=== PATIENT | female | born 1955 | race Caucasian/White ===

== ENCOUNTER 2017-04-06 20:09 | Emergency (ER) | payer OTHER ==
[2017-04-06 20:31] VITALS: BMI 30.3
[2017-04-06 21:13] LABS: URINE APPEARANCE CLEAR; URINE BILIRUBIN NEGATIVE (NEGATIVE); URINE BLOOD 3+ (NEGATIVE); URINE COLOR LTYELLOW; URINE GLUCOSE (UA) NEGATIVE (NEGATIVE); URINE KETONE NEGATIVE (NEGATIVE); URINE LEUK ESTERASE TRACE (NEGATIVE); URINE NITRITE NEGATIVE (NEGATIVE); URINE PROTEIN NEGATIVE (NEGATIVE); URINE UROBILINOGEN NEGATIVE mg/dL (0.2-1.0)
[2017-04-06 21:48] LABS: URINE BACTERIA FEW /hpf (NONE SEEN); URINE MUCUS RARE; URINE RBC 10 /hpf (0-3); URINE WBC 3 /hpf (3-5)
--- NOTE | 2017-04-06 21:52 | PDOC ---
History of Present Illness - General Chief Complaint: Pain Stated Complaint: PAIN Time Seen by Provider: 04/06/17 21:32 - History of Present Illness Initial Comments: 04/06/17 21:42 CHIEF COMPLAINT: LLQ pain HISTORY OF PRESENT ILLNESS: 62 yo F with hx of HTN, HLD, and kidney stones presents to ED with LLQ pain since 8am this morning. Patient reports that she has been diagnosed with stones before "but they never hurt like this." Patient states she took 2 ibuprofen around 7 pm and with some relief. She reports having nausea and two episodes of vomiting this morning when the pain began but denies N/V at this time. She denies any fever. Patient reports recent travel on plane from [place] this morning. She denies any chest pain, SOB, difficulty breathing, pain or swelling to legs. PAST MEDICAL HISTORY: as per HPI FAMILY HISTORY: Denies SOCIAL HISTORY: Denies tobacco, alcohol, illicit drug use. SURGICAL HISTORY: Denies ALLERGIES: No known drug allergies REVIEW OF SYSTEMS General/Constitutional: Denies fever or chills. Denies weakness, weight change. HEENT: Denies change in vision. Denies ear pain or discharge. Denies sore throat. Cardiovascular: Denies chest pain or shortness of breath. Respiratory: Denies cough, wheezing, or hemoptysis. Gastrointestinal: Denies nausea, vomiting, diarrhea or constipation. Denies rectal bleeding. Genitourinary: Pain to L back and LLQ. Denies dysuria, frequency, or change in urination. Musculoskeletal: Denies joint or muscle swelling or pain. Denies neck or back pain. Skin and breasts: Denies rash or easy bruising. PHYSICAL EXAM General Appearance: Well-appearing, appropriately dressed. No apparent distress , no intoxication. HEENT: EOMI, PERRLA. Neck: Supple. Trachea midline. No tenderness, rigidity, carotid bruit, stridor , lymphadenopathy, or thyromegaly. Respiratory/Chest: Lungs CTAB. No shortness of breath, chest tenderness, respiratory distress, accessory muscle use. No crackles, rales, rhonchi, stridor , wheezing, dullness Cardiovascular: RRR. S1, S2. Vascular Pulses: Dorsalis-Pedis (R): 2+, Dorsalis-Pedis (L): 2+ Gastrointestinal/Abdominal: Normal bowel sounds. Abdomen soft, non-distended. No tenderness or rebound tenderness. No organomegaly, pulsatile mass, guarding , hernia, hepatomegaly, splenomegaly. Musculoskeletal/Extremities: L CVA tenderness. Normal inspection. FROM of all extremities, normal capillary refill. Pelvis Stable. No CVA tenderness. No tenderness to extremities, pedal edema, swelling, erythema or deformity. Integumentary: Appropriate color, dry, warm. No cyanosis, erythema, jaundice or rash Neurologic: phlebotomy technologist II-XII intact. Fully oriented, alert. Appropriate mood/affect. Motor strength 5/5. No appreciable EOM palsy, facial droop or sensory deficit. Past History - Past Medical History Allergies/Adverse Reactions: Allergies Allergy/AdvReac Type Severity Reaction Status Date / Time No Known Allergies Allergy Verified 04/06/17 20:28 Home Medications: Ambulatory Orders Tamsulosin HCl [Flomax] 0.4 mg PO DAILY #14 cap.er.24h 04/07/17 Disorders: Yes (Kidney stones) HTN: Yes Hypercholesterolemia: Yes - Suicide/Smoking/Psychosocial Hx Smoking History: Never smoked Have you smoked in the past 12 months: No Information on smoking cessation initiated: No Hx Alcohol Use: No Drug/Substance Use Hx: No Substance Use Type: None *Physical Exam - Vital Signs Last Vital Signs Temp Pulse Resp BP Pulse Ox 98.0 F 84 18 157/72 97 04/06/17 20:28 04/06/17 20:28 04/06/17 20:28 04/06/17 20:28 04/06/17 20:28 ED Treatment Course - LABORATORY CBC & Chemistry Diagram: 04/06/17 22:05 04/06/17 22:05 - ADDITIONAL ORDERS Additional order review: Laboratory Results 04/06/17 21:00 Urine Color Ltyellow Urine Appearance Clear Urine pH 5.0 Urine Protein Negative Urine Glucose (UA) Negative Urine Ketones Negative Urine Blood 3+ H Urine Nitrite Negative Urine Bilirubin Negative Urine Urobilinogen Negative - RADIOLOGY Radiology Studies Ordered: Category Date Time Status SPIRAL- RENAL-STONE CT [CT] Stat CT Scan 04/06/17 21:36 Ordered Medical Decision Making - Medical Decision Making 04/06/17 21:52 62 yo F with hx of HTN, HLD, and kidney stones presents to ED with LLQ pain since 8am this morning. -UA, Ucx -CBC, BMP UA with 3+ blood. Will order spiral CT to r/o stones. -Toradol IV, IVF 04/07/17 01:[address] positive: "Multiple left non obstructing renal stones. Mild to moderate left hydronephrosis/hydroureter with mild periureteric stranding. There is a very tiny 1 mm or less density in the distal third of the left ureter. Uncertain if this is the offending stone or quantum mottle artifact. In any event this is either the stone or the offending stone has already passed. Check to see if the patient's symptoms have subsided. Multiple nonobstructing right renal stone, no right urinary tract obstruction at this time. 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 CT otherwise unremarkable. Read by: Cristian Donis MD Patient reassessed; at this time she states she is feeling better and would like to go home. Advised patient to f/u with PCP by the end of the week and of signs and symptoms for return to ER; patient verbalized understanding and agrees to plan. *DC/Admit/Observation/Transfer Diagnosis at time of Disposition: Kidney stones - Discharge Dispostion Disposition: HOME Condition at time of disposition: Improved Admit: No - Prescriptions Prescriptions: Tamsulosin HCl [Flomax] 0.4 mg PO DAILY #14 cap.er.24h - Referrals Referrals: Diogo Mckeon MD [Primary Care Provider] - - Patient Instructions Printed Discharge Instructions: Kidney Stones -- Adult Additional Instructions: Please follow up with Dr. Mckeon by the end of the week. If you develop any new or worsening pain to your abdomen, fever, chills, nausea, vomiting, or any new symptoms, please return to the ER. Print Language: YORUBA
[2017-04-06 22:12] LABS: BASOPHIL 0.2 % (0-2.0); EOSINOPHIL 0.1 % (0-4.5); MCHC 33.4 g/dl (32.0-36.0); MEAN CELL VOLUME 89.9 fl (80-96); MEAN PLT VOLUME 7.7 fl (7.5-11.1); NEUTROPHILS 84.7 % (42.8-82.8); PLATELET COUNT 153 K/MM3 (134-434); RDW 13.2 % (11.6-15.6); WHITE BLOOD COUNT 12.7 K/mm3 (4.0-10.0)
[2017-04-06 22:45] LABS: ANION GAP 10 (8-16); CO2 25 mmol/L (21-32); CREATININE 0.8 mg/dL (0.55-1.02); GLUCOSE,RANDOM 124 mg/dL (74-106)
[2017-04-06] MEDS ORDERED: SODIUM CHLORIDE 0.9% 1000 ML INFUS.BAG IV ONE (23:10)
[2017-04-06] MEDS ORDERED: KETOROLAC TROMETHAMINE 30 MG/1 ML VIAL IVPUSH ONE (23:10)
[2017-04-06] MEDS ORDERED: KETOROLAC TROMETHAMINE 30 MG/1 ML VIAL ONE (23:30)
[2017-04-07 02:24] VITALS: BP 124/78; PULSE 83; TEMP 98.1
--- NOTE | 2017-04-08 08:51 | PDOC ---
Patient Follow-up (Call Back) - Post ED Follow - Up Disposition at time of original discharge: HOME Reason for Call Back: Radiology (CAT scan spiral renal stone CT without oral or IV contrast additional reading by he read an additional left lower anterior lateral abdominal pelvic wall Gaurav resulting in an 8 x 24.0 cm fat- containing hernia with minimal stranding. Clinical correlation is needed to exclude underlying strangulation or incarcerated radiation. Patient was called left message for patient to call back patient's cell phone #[phone] also called patient's home at [phone] patient was not there. Left message to call back today. called pt. again left message at her home [phone] to call back)
== END 2017-04-07 02:24 | disposition home or self-care (01) ==
LOC: JER 20:09
PROC: 3E0233Z Introduction of Anti-inflammatory into Muscle, Percutaneous Approach (ICD-10-PCS; principal; 2017-04-06)
DX: N20.0 Calculus of kidney (principal); Z87.442 Personal history of urinary calculi; I10 Essential (primary) hypertension
CPT/HCPCS: 36415; 74176; 80048; 81003; 81015; 85025; 87086; 99283-25

== ENCOUNTER 2021-08-23 14:21 | Emergency (ER) | payer OTHER ==
[2021-08-23 14:34] VITALS: BP 157/73; PULSE 113; TEMP 98; BMI 31.1
[2021-08-23 18:00] LABS: BASO % 0.9 % (0-2.0); EOS % 1.7 % (0-4.5); HEMATOCRIT 35.6 % (32.4-45.2); MCH 29.5 pg (25.7-33.7); MCHC 33.8 g/dl (32.0-36.0); MEAN CELL VOLUME 87.2 fl (80-96); MEAN PLT VOLUME 7.8 fl (7.5-11.1); MONO % 10.8 % (3.8-10.2); NEUT % 72.6 % (42.8-82.8); PLATELET COUNT 280 10^3/uL (134-434); RBC 4.08 M/mm3 (3.60-5.2); RDW 14.1 % (11.6-15.6); WHITE BLOOD COUNT 6.2 K/mm3 (4.0-10.0)
[2021-08-23 18:21] LABS: ALBUMIN 3.5 g/dl (3.4-5.0); BLOOD UREA NITROGEN 21.7 mg/dL (7-18)
[2021-08-23 18:24] LABS: CREATININE 0.8 mg/dL (0.55-1.3)
[2021-08-23 18:26] LABS: BILIRUBIN,TOTAL 0.2 mg/dL (0.2-1); TOT PROT 7.8 g/dl (6.4-8.2)
[2021-08-23 19:35] LABS: ERYTHROCYTE SEDIMENTATION RATE 71 mm/hr (0-30)
== END 2021-08-23 20:24 | disposition home or self-care (01) ==
LOC: JER 14:21
DX: R21 Rash and other nonspecific skin eruption (principal); L03.116 Cellulitis of left lower limb
CPT/HCPCS: 36415; 80053; 85025; 85651; 86140; 99283-25